=== PATIENT | female | born 1940 | race Caucasian/White ===

== ENCOUNTER 2019-08-27 11:37 | Inpatient (IN) | payer OTHER ==
[~2019-08-27] VITALS: Ht 149.9 cm; Wt 42.6 kg
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
[2019-08-27 11:39] VITALS: BP 138/49
[2019-08-27 12:15] LABS: HEMATOCRIT 33.5 % (37.0-47.0); HEMOGLOBIN 11.3 gm/dL (12.0-15.0); MCH 29.4 pg (26.0-34.0); MCHC 33.7 g/dL (28.0-37.0); MCV 87.3 fL (80.0-100.0); PLATELET COUNT 210 thou/uL (150-400); RBC 3.84 mil/uL (4.20-5.00); RDW 17.4 % (10.5-14.5); WBC 6.8 thou/uL (4.0-11.0)
[2019-08-27 12:22] LABS: CALCIUM 8.6 mg/dL (8.5-10.1); CREATININE 0.6 mg/dL (0.6-1.0); POTASSIUM 4.3 mmol/L (3.5-5.1)
[2019-08-27 12:29] LABS: ALBUMIN 2.6 g/dL (3.4-5.0); TOTAL BILIRUBIN 0.2 mg/dL (0.2-1.0); TOTAL PROTEIN 6.3 g/dL (6.4-8.2)
--- NOTE | 2019-08-27 12:48 | EKG ---
[facility] [place] [address] ELECTROCARDIOGRAM REPORT Name: ENRIKESIMON Room #: PRE [facility]..#: [id number] Admission: Attend Phys: Discharge: Date of : 38 Report #: [id number] THIS REPORT FOR: cc: Syed Hernandez MD ~ THIS REPORT FOR: //name// [facility] ED Test Date: 2019-08-27 Test Time: 12:45:38 Pat Name: SIMON CALVERT Department: Room: Gender: F [employer] Representative: RAMSEY : 1940 Requested By: Luzma Almendarez Order Number: [id number] MD: Syed Hernandez Measurements Intervals [place] Rate: 69 P: 37 NC: 139 QRS: -16 QRSD: 80 T: 47 QT: 427 QTc: 458 Interpretive Statements Sinus rhythm Probable LVH with secondary repol abnrm Anterior Q waves, possibly due to LVH No previous ECG available for comparison Electronically Signed On 08-27-2019 12:48:12 CDT by Syed Hernandez [email or web address] <ELECTRONICALLY SIGNED> By: Syed Hernandez MD 08/27/19 1248 D: [id number] Syed Hernandez MD /TAB
[2019-08-27 12:52] LABS: ABSOLUTE NEUTROPHILS 3.9 thou/uL (1.4-8.2); PLATELET ESTIMATE NORMAL
[2019-08-27] MEDS ORDERED: ZOFRAN4 MG PO (13:14)
[2019-08-27] MEDS ORDERED: MIRALAX119 GM PO (13:14)
[2019-08-27] MEDS ORDERED: VITAMIN B-650 M1 PO (13:14)
[2019-08-27] MEDS ORDERED: LIPITOR40 MG PO (13:15)
[2019-08-27] MEDS ORDERED: MELATONIN3 M1 PO (13:15)
[2019-08-27] MEDS ORDERED: LOPERAMIDE2 MG PO (13:16)
[2019-08-27 13:17] LABS: URINE BILIRUBIN NEGATIVE (Negative); URINE BLOOD NEGATIVE (Negative); URINE CLARITY CLEAR; URINE COLOR YELLOW; URINE GLUCOSE-RANDOM* NEGATIVE (Negative); URINE KETONES NEGATIVE (Negative); URINE LEUKOCYTES-REFLEX NEGATIVE (Negative); URINE NITRITE-REFLEX NEGATIVE (Negative); URINE PROTEIN (DIPSTICK) NEGATIVE (Negative); URINE UROBILINOGEN 0.2 E.U./dl (0.2-1.0)
[2019-08-27] MEDS ORDERED: BENTYL 10 MG CA10 MG PO (13:30)
[2019-08-27] MEDS ORDERED: ULTRAM 50MG TAB50 MG PO (13:32)
[2019-08-27] MEDS ORDERED: PROAIR RESPICL90 MCG INH (13:32)
[2019-08-27] MEDS ORDERED: FLORANEX TABLE1 EACH PO (13:32)
[2019-08-27] MEDS ORDERED: SENNA PLUS TAB1 EACH PO (13:32)
[2019-08-27] MEDS ORDERED: TYLENOL EXTRA500 MG PO (13:32)
[2019-08-27] MEDS ORDERED: PRINIVIL40 MG PO (13:33)
[2019-08-27] MEDS ORDERED: HYDRALAZINE 10M10 MG PO (13:33)
[2019-08-27] MEDS ORDERED: PROPRANOLOL 1010 M1 PO (13:33)
[2019-08-27] MEDS ORDERED: DEPAKOTE125 MG PO ×2 (13:33→13:34)
[2019-08-27] MEDS ORDERED: ZYPREXA7.5 MG PO (13:34)
[2019-08-27 13:52] VITALS: BP 246/94
[2019-08-27 14:29] VITALS: BP 195/127
--- NOTE | 2019-08-27 14:59 | NUR ---
PT. ARRIVED ABOUT 1400 TODAY IN A W/C FROM ER. SHE WAS TAKEN TO THE BATHROOM WHEN SHE CAME INTO HER ROOM. SHE WAS BROUGHT FROM [facility] AFTER SHE WAS COMBATIVE WITH STAFF/PEERS. SHE HAS DEMENTIA WITH BEHAVIORS. SHE WAS COOPERATIVE WITH STAFF WITH THE ADMISSION PROCESS. SHE IS ALERT AND ORIENTED TO SELF ONLY. SHE WAS UNABLE TO ANSWER QUESTIONS WHEN SHE WAS ASKED. UPON GOING ONTO THE PATIENT DINNING ROOM SHE SAT DOWN AND STARTED SCREAMING TO THE TOP OF HER LUNGS. STAFF ATTEMPTED TO REASSURE HER OF HER SAFETY. SHE WAS GIVEN AN IM OF OLANZAPINE 5 MG. SHE WAS COOPERATIVE WITH THE IM. SHE HAS A PMHX OF IBS, COPD, HYPERLIPIDEMA, HYPERTHYROIDISM, EPILEPSY, DM II (NO MEDICATIONS), CAD. SHE IS ALLERGIC TO IODINE, CODIENE, CIPRO AND FOSOMAX. HER SON ALCIRA IN [place] AND JENNIFER IN [place] ARE DPOA'S. THE SON, ALCIRA'S PHONE NUMBER IS [phone].
[2019-08-27 16:59] VITALS: BP 197/66
[2019-08-27 19:29] VITALS: BP 179/76
--- NOTE | 2019-08-28 04:29 | NUR ---
RECIEVED CARE OF THIS PATIENT AT 1900. PATIENT ALERT AND ORIENTED TO PERSON KEVIN. SAT UP IN CHAIR IN MAIN ROOM ALL NIGHT. SLEPT OFF AND ON DURING NIGHT D/T THE NOISE FROM THE OTHER PATIENTS IN THE ROOM. DENIES PAIN. UP WITH W/C OR A WALKER.
[2019-08-28 06:38] VITALS: BP 153/79
[2019-08-28 09:48] VITALS: BP 153/79
[2019-08-28 09:55] VITALS: BP 153/79
--- NOTE | 2019-08-28 09:55 | NUR ---
0955 RESUMMED CARE FROM OVERNIGHT SHIFT THIS AM, PATIENT SITTING IN RECLINER WITH ONE TO ONE STAFF. PATIENT ATE BREAKFAST AND TOOK MEDICATION WITHOUT INCIDENCE CRUSHED. PATIENT HAD A VISIT FROM OUTSIDE MEDICAL DOCTOR, DOCTOR ORDERED A CT SCAN AND CHEST XRAY FOR PATIENT. ALSO ADDED LISINOPRIL FOR BP, PATIENTS ABDOMEN SOFT ROUND BOWEL SOUNDS PRESENT LUNGS CLEAR. PATIENT LEANS TO RT SIDE. HER MEDICAL DOCTOR THINKS COULD BE RELATED TO AFALL PATIENT HAD PREVIOUSLY. PATIENT QUIET COOPERATIVE WILL CONTINUE TO MONITOR PATIET FOR SAFETY AND BEHAVIORS.
--- NOTE | 2019-08-28 11:26 | NUR ---
Sw spoke with pt' dght and provided an update. Sw completed the intake assessment and tp. [facility] is eager for pt to d/c and would like it to be or Sat next week. Sw attempted to provide education and support.
[2019-08-28 19:41] VITALS: BP 121/34
--- NOTE | 2019-08-29 04:35 | NUR ---
Assumed care of pt @ 1900. Pt calm et cooperative most of shift with several small outbursts of aggression et verbalization. Took medication crushed in yogurt without difficulty. Unable to assess ambulation as pt spent most of shift in recliner. VSWNL. Health assessment with no abnormalities noted at present time. Unable to assess SI/HI due to pt's cognitive deficits but does not demonstrate any signs or symptoms of acute emotional distress at present time. Currently resting in recliner in dayroom with eyes open. Pt has not slept very much at all this shift. Will continue to monitor per protocol.
[2019-08-29 07:35] VITALS: BP 114/64
[2019-08-29 10:15] VITALS: BP 136/84
--- NOTE | 2019-08-29 10:33 | NUR ---
ASSUMED CARE AT 0700 THIS MORNING. PT. IN RECLINING CHAIR, AWAKE. PT. UNABLE TO CARRY ON CONVERSATION OR ANSWER QUESTIONS DUE TO COGNITIVE DEFICITS. SHE TOOK HER MEDICATIONS WITHOUT DIFFICULTY. SHE HAS HER EYES CLOSED, RESTING THIS MORNING.
[2019-08-29 19:35] VITALS: BP 93/46
--- NOTE | 2019-08-30 04:56 | NUR ---
Assumed care of pt @ 1900. Pt calm et cooperative with pleasant demeanor this shift. Took medications crushed in pudding without difficulty. Unable to assess gait as pt spent most of shift in recliner in dayroom. VSWNL. Health assessment with no abnormalities noted at present time. Unable to assess SI/HI due to pt's cognitive deficit but does not demonstrate any signs or symptoms of acute emotional distress at present time. Currently resting in recliner in dayroom with eyes closed. Will continue to monitor per protocol.
[2019-08-30 09:05] VITALS: BP 142/51
--- NOTE | 2019-08-30 09:48 | NUR ---
ASSUMED CARE AT 0700 THIS MORNING. PT. WAS SITTING IN A RECLINING CHAIR, QUIET. SHE TOOK HER MORNING MEDICATIONS CRUSHED AND IN PUDDING WITHOUT DIFFICULTIES. SHE REMAINS ON 1:1 FOR SAFETY. SHE CONSTANTLY TRIES TO GET OUT OF THE CHAIR. SHE IS UNSTEADY ON HER FEET AND CANNOT AMULATE WITHOUT ASSISTANCE OF ONE. SHE IS TALKING IN FULL SENTENCES BUT DOES NOT PERTAIN TO THE CONVERSATION GOING ON. SHE REMAINS TANGENTIAL IN HER CONVERSATIONS. SHE APPEARS MORE AWAKE AND ALERT THOUGH. SHE SMILES AT STAFF WHEN THEY ARE TALKING TO HER.
[2019-08-30 12:27] VITALS: BP 142/51
[2019-08-30 19:53] VITALS: BP 121/52
[2019-08-30 20:30] VITALS: BP 121/52
--- NOTE | 2019-08-31 03:57 | NUR ---
PATIENT WAS SITTING UP IN RECLINER THIS EVENING WITH LAP CHANI ON AND A 1:1 SITTER. SHE HAS BEEN APPROPRIATE AND ANSWERING QUESTIONS APPROPRIATELY FOR THE MOST PART. SHE HAS BEEN CALM AND COOPERATIVE. SHE PATIENT TOOK ALONG TIME TO FALL ASLEEP TONIGHT D/T RESTLESS AND KEPT TALKING TO OTHERS IN HER ROOM. HER CONVERSATION DOESN'T MAKE MUCH SENSE MOST OF TIME BUT SPEECH IS CLEAR. PT IS SLEEPING AT THIS TIME. BED IN LOW POSITION AND BED ALARM IS ON. PATIENT TOOK HER MEDS CRUSHED IN PUDDING WITHOUT INCIDENT. SHE DENIES PAIN. NO SI/HI/AVH NOTED. CONTINUING TO MONITOR.
[2019-08-31 07:52] VITALS: BP 149/51
--- NOTE | 2019-08-31 09:05 | NUR ---
YARITZA faxed updates to Carlin Augustin this AM
--- NOTE | 2019-08-31 11:55 | NUR ---
Johana spoke with both Angelica in admisisons at and then ht of pt who thought pt was discharging on Sat or . JOHANA corrected her and offered more education about the d/c expectations. Pt was taken off the 1:1 this am, and is taking meds as prescribed. Hoping for a d/c at the end of this week, possibly saturday.
--- NOTE | 2019-08-31 13:53 | NUR ---
HAS HAD SOME EPISODES OF RESTLESSNESS THIS AM BUT HAS BEEN DIRECTABLE WITH SUPPORT OF NURSING STAFF. LABILE AT TIMES TEAFUL AT TIMES YELLING OUT LOUDLY. ORIENTED TO NAME ONLY. COMPLIENT WITH TAKING MEDICATIONS CRUSHED WITH PUDDING
--- NOTE | 2019-08-31 14:59 | NUR ---
YARITZA spoke with pt's dght and provided an update regarding pt's condition and set up a family meeting for 2pm on 08/31. Reported this to Dr Deras
--- NOTE | 2019-08-31 16:20 | NUR ---
Pt was unable to participate in the Sw group
[2019-08-31 20:36] VITALS: BP 149/51
[2019-08-31 21:00] VITALS: BP 149/51
--- NOTE | 2019-09-01 02:30 | NUR ---
PATIENT WAS UP IN RECLINER IN DINING ROOM TONIGHT UNTIL SHE WENT TO BED AT 2130. PATIENT HAS BEEN CALM AND RELAXED. SHE DID TALK ALOT TONIGHT ABOUT WHAT SEEMS TO BE MEMORIES OF A TRIP SHE HAD. PATIENT WORDS SCRAMBLED. PATIENT DID SMILE ALOT TONIGHT. SHE HAD HS SNACK. PATIENT ABLE TO LET US KNOW THAT SHE NEEDED TO USE THE RESTROOM AND WAS ASSISTED TO BSC AND THEN TO BED. PATIENT STATES SHE WAS TIRED. SHE DENIES PAIN. PATIENT HAS BEEN SLEEPING SO FAR TONIGHT. INCONTINENCE CARES NEEDED. PATIENT IS WEAK IN LEGS BUT DID TAKE A FEW STEPS WITH HER WALKER. BED IN LOW POSITION AND BED ALARM IS ON. ROUTINE ROUNDING TO CHECK STATUS AND SAFETY OF PATIENT.
[2019-09-01 06:18] LABS: CALCIUM 8.6 mg/dL (8.5-10.1); CREATININE 0.7 mg/dL (0.6-1.0); POTASSIUM 4.5 mmol/L (3.5-5.1)
[2019-09-01 08:41] VITALS: BP 154/41
[2019-09-01 14:50] VITALS: BP 183/66
--- NOTE | 2019-09-01 14:50 | NUR ---
Johana and Dr deras spoke with [facility] Carlie. Dr Deras provided an update that include the idea of hospice. He also suggested that Carlie come and visit tomorrow. Carlie is feeling upset and surprised by this as she lost her father on August 22 2019. Johana added her as the designated visitor and she swill call in the AM to confirm the 4pm-5pm visit on 09/01. JOHANA then called [facility] and left a VM that this pt might be ready to d/c on 09/02. JOHANA then faxed updates.
[2019-09-01 14:52] VITALS: BP 152/54
--- NOTE | 2019-09-01 15:30 | NUR ---
Pt's dght requested that the visit be held outside and DR Deras agreed that she could go for " fresh air therapy". [facility] is undecided about the visit.
[2019-09-01 19:21] VITALS: BP 170/50
--- NOTE | 2019-09-01 19:32 | NUR ---
Alert and interactive today. Alot of confused speech but does make occassional coherent statements. Alert to name and day. Denies SI/HI, no speech/behavior suggestive of SI/HI. Follows simple commands, compliant with meds crushed in applesauce. Independently eating meals with minimal assistance. Breath sounds clear t/o. Reg HR auscultated. Color pink with brisk capillary refill and palpable peripheral pulses. Incontinent of yellow urine. Active bowel sounds over soft, flat abdomen. Spent day in recliner without s/o distress and without reported negative behaviors.
--- NOTE | 2019-09-02 05:11 | NUR ---
Assumed care of pt @ 1900. pt calm et cooperative with pleasant demeanor at beginning of shift. Took medications crushed in pudding without difficulty. Ambulates with assistance of aramis-chair this shift. Socialized in dayroom with peers though communication difficult due to pt's occasional word salad. VSWNL. Health assessment with no abnormalities noted at present time. Unable to assess SI/HI due to pt's cognitive deficit but does not demonstrate any signs or symptoms of acute emotional distress at present time. PRN Olanzapine 5mg IM given for agitation this shift. Currently resting in aramis-chair in dayroom with eyes open. Will continue to monitor per protocol.
[2019-09-02 10:15] VITALS: BP 143/58
--- NOTE | 2019-09-02 11:13 | NUR ---
Pt is was in the day room this am. Pt ate most of her bkf. and diet was changed to mechanical soft. Pt also had Ute oob with walker this am. lungs clearx 2, pedal pulse faint, bowel sounds active. No complaint voiced at this time.Staff continues to observed and encouraged to drink fluids.
--- NOTE | 2019-09-02 13:03 | NUR ---
SW spoke with Carlin Monica and disucssed that d/c will not be tomorrow- so it will likely be Saturday. [facility] stated that they do not like Saturday admissions on a complex pt. Sw will relay this to pt's dght , the admisisons coordiantor reported sh was talking with dght, and Dr Hdz too about the concerns dght has.
--- NOTE | 2019-09-02 15:10 | NUR ---
Johana spoke with Carlie and reported to her that this pt received an IM last night and would not be ready for d/c until Saturday. Carlie reported she is disappointed but understands.
[2019-09-02 20:02] VITALS: BP 128/63
[2019-09-02 20:30] VITALS: BP 128/63
--- NOTE | 2019-09-02 23:13 | NUR ---
PATIENT WAS SITTING UP IN RECLINER AT A TABLE IN DINING ROOM WITH LAPBUDDY ON LOOSLY AND FASTENED IN FRONT. PATIENT WAS CALM AND RELAXED AND SAT FIDGETING WITH HER CLOTHES AND WATCHING THOSE AROUND HER. PATIENT DID TAKE HS MEDS CRUSHED IN APPLESAUSE AND DRANK HONEY THICKENED WATER. SHE HAD HS SNACK OF ENSURE PUDDING. PATIENT DENIES PAIN. ASSESSMENT WNL. NO SI/HI/AVH. PATIENT ASSISTED TO BED AND INCONTINENCE CARES DONE. PATIENT SLEEPING AT THIS TIME. ROUTINE ROUNDS TO ASSESS SAFETY AND STATUS OF PATIENT. PATIENT HAS BEEN PLEASANT AND NO NEGATIVE BEHAVIORS TONIGHT. PATIENT DOES TALK BUT WORDS ARE SCRAMBLED AND UNORGANIZED THOUGHT PROCESS.
[2019-09-03 10:04] VITALS: BP 148/68
--- NOTE | 2019-09-03 11:28 | NUR ---
Pt was in day room this am when arrived on duty. lul looked sleepy, but awoke when I asked her questions. Assessment ,lungs clearx2, pedal pulse faint , no edema noted , bowel sounds faint. appitite good. Pt did not have a goal for today. Fluids encouraged. pt. was toileted.
[2019-09-03 13:12] VITALS: BP 148/66
--- NOTE | 2019-09-03 14:43 | NUR ---
Johana spoke with Carlie and provided an update. She understands that pt will likely be here through the weekend and was pleased tohear her mom was doing better. Johana will coordinate with Carlin cardenas a Saturday d/c is appropriate
[2019-09-03 19:28] VITALS: BP 134/62
--- NOTE | 2019-09-04 | NUR ---
Care assumed of patient at 1915: Patient seated in recliner, in dayroom at start of shift. Patient alert and oriented to person only. Patient pleasantly confused and forgetful. Patient talking excessively, expansive. Patient denies anxiety, depression, SI, HI, AH, VH. Patient denies pain. Patient having disorganized but joyful speech. Patient discussing family, vacation, going to [place]. Smiling and happy. Patient took HS medication crushed with a cup of yogurt. Patient somewhat delusional with her speech but only able to catch a few words here and there. Patient answering questions appropriately and has better ability to focus. Patient incontinent of bladder. Required mod assist x1 for maria isabel care and linen change. Very cooperative with toileting cares. Patient provided option of laying in bed or laying in recliner. Patient stated she wanted to sleep in the recliner. Patient able to fall asleep at a reasonable hour and is resting quietly in recliner at this time.
[2019-09-04 07:41] VITALS: BP 126/48
--- NOTE | 2019-09-04 10:18 | NUR ---
Nutrition: Assessed for early weekend LOS. Here for dementia w/ behaviors/ aggression. Psych notes state pt w/ very advanced dementia. Noted to have delusional speech and words are scrambled. Mainly A&O to person only, confused and forgetful. EMR reviewed. Pt on mechanical chopped diet with honey thick liquids and no mixed consistencies. Appetite noted to be very good. Pt often eats 80-100% of meals. Meal Average= 78% per the last 13 recorded meals across 5 days (08/29 - 09/02). Recent BM 09/02. Does require some feeding assistance which staff provides as needed. Receiving Ensure pudding at her meals. Pt is of very short stature < 5 feet tall and BMI still appropriate at 18.8 kg/m2. Likely d/c Saturday potentially per notes. Maintain low nutrition risk.
--- NOTE | 2019-09-04 10:56 | NUR ---
Johana spoke with lamine Sexton and reported that pt was still ready to d/c saturday as planned. Pt is now off a lap tadeo, taking meds orally, acceptign ADL care and will have her COVID test done over the weekend. JOHANA then called [facility] to confirm a belt picker time and left a VM. Johana then faxed updates.
[2019-09-04 15:53] VITALS: BP 126/48
--- NOTE | 2019-09-04 16:03 | NUR ---
ASSUMED CARE AT 0700 THIS MORNING. PT. SITTING IN CHAIR, QUIET. SHE IS RESTING. SHE WAS GIVEN HER MEDICATIONS CRUSHED AND IN YOGURT. SHE TOOK THESE WITHOUT HESITATION. SHE HAS BEEN CALM AND COOPERATIVE ALL DAY. SHE DOES REST FREQUENTLY. SHE HAS ATTENED SOME GROUPS BUT NOT SURE IF SHE WAS ABLE TO PARTICIPATE SINCE SHE SLEEPS OFTEN.
--- NOTE | 2019-09-04 16:39 | NUR ---
YARITZA spoke with Angelica at and confirmed that they will picking tech this pt at 11 am on saturday. SW confirmed the COID test for Sat, and the d/c plans with nursing.
[2019-09-04 19:30] VITALS: BP 124/50
--- NOTE | 2019-09-04 23:06 | NUR ---
Care assumed of patient at 1915: Patient seated in recliner in dayroom at start of shift. Patient calm, pleasant and cooperative. Patient smiling and interactive with staff. Patient pleasant when other peers interact with her. Patient having clear, disorganized thoughts. No delusional or paranoia behaviors observed. Denies SI/HI/AH/VH. Denies pain and discomfort. Alert and oriented to person only. Confused and forgetful. No restlessness or impulsivity observed. Patient not visualized trying to get out of her chair independently. Patient ate 100% HS snack of yogurt, fed by nurse. Patient took HS medication crushed without difficulty. Patient assisted to bed with staff assist x2. Incontinent of bladder. Cooperative with maria isabel care and linen change. Patient has been able to rest quietly since retiring to bed.
[2019-09-05 09:12] VITALS: BP 126/41
--- NOTE | 2019-09-05 13:27 | NUR ---
Alert and talkative, but speech mostly incoherent. Alert and orientated to name only. Happy affect. No speech/behavior suggestive of SI/HI. Sitting in recliner without lap tadeo. Occassionally tries to get up but is cooperative with requests/reminders to sit down. Eats approximately 50% of meal independently and eats rest with assistance. Ate 100% of lunch. Compliant with meds crushed in apple sauce. Breath sounds clear t/o. Reg HR auscultated. Color pink with brisk capillary refill and palpable peripheral pulses. No edema noted. Incontinent of yellow urine per brief. Active bowel sounds over soft, rounded abdomen. 1300 Daughter called for update, provided. Spoke with pt at length. Pt. appeared to be happy to speak with her and was able to ask how she was doing and several other pertinent questions but also had alot of confused, rambling speech. Daughter concerned and states she will talk with SW. Also wants to know why COVID test is ordered for 09/05 instead of 09/04. Pt currently sleeping in recliner without s/o distress.
[2019-09-05 18:58] VITALS: BP 135/49
--- NOTE | 2019-09-06 05:26 | NUR ---
09-06-19 CARE TRANSFERRED 1915 PT SITTING IN RECLINER IN DAY ROOM. 2010 PT AAOX1, CONFUSED AND SPEACH GARBLED. PT CALM AND COOPERATIVE, VSS RR EVEN AND NONLABORED ON RA. LATER PT WAS MOVED TO BED. THROUGHOUT NURSING ROUNDS PT HAD ZERO S/S OF ACUTE EMOTIONAL OR MEDICAL DISTRESS. WILL CONTINUE TO MONITOR PER [facility].
[2019-09-06 07:50] VITALS: BP 164/62
--- NOTE | 2019-09-06 09:34 | NUR ---
ASSUMED CARE AT 0700 THIS MORNING. PT. SITTING A REGULAR CHAIR IN THE DINING ROOM. SHE IS SMILING. SHE IS TAKING BUT SPEECH IS NOT INTELLIGABLE. SHE ATE BREAKFAST BY HERSELF. SHE STATED SHE WAS HUNGRY. SHE TOOK HER MEDICATIONS CRUSHED AND APPLESAUCE WITHOUT PROBLEMS NOTED. SHE REQUIRES REMINDERS TO REMAIN SEATED AND NOT WALK AROUND BY HERSELF.
[2019-09-06 11:31] VITALS: BP 164/62
[2019-09-06 21:00] VITALS: BP 126/82
[2019-09-06 21:05] VITALS: BP 155/136
[2019-09-06 21:30] VITALS: BP 126/82
--- NOTE | 2019-09-07 02:57 | NUR ---
PATIENT WAS UP IN RECLINER IN DINING ROOM TONIGHT AND HAD HS SNACK BEFORE FALLING ASLEEP IN CHAIR. SHE HAS BEEN CALM AND COOPERATIVE. NO NEGATIVE BEHAVIORS. PATIENT TOOK HS MEDS CRUSHED IN [place]. SHE CONTINUES TO BE ON HONEY THICKENED LIQUIDS. PATIENT ASSISTED TO BED AND INCONTINENCE CARES DONE AROUND 2129. ROUTINE ROUNDS TO ASSESS STATUS AND SAFETY OF PATIENT. BED IN LOW POSITION AND BED ALARM IS ON. WILL CONTINUE TO MONITOR.
[2019-09-07 08:52] VITALS: BP 100/40
--- NOTE | 2019-09-07 09:58 | NUR ---
ATTEMPTS X 2 TO CALL REPORT TO [facility]-MESSAGE LEFT FOR NURSING STAFF TO CALL FOR NURSING REPORT. SON-DPOA ALCIRA CALVERT CONTACTED VIA PHONE AND DC INSTRUCTIONS,MEDS,FOLLOW UP ETC REVIEWED-HE DENIES QUESTIONS/CONCERNS AND STATES UNDERSTANDING. PERSONAL BELONGINGS INVENTORIED AND CHECKED AGAINST ADMIT LIST-BELONGINS SENT WITH PT AT DC. PACKET INCLUDING RX,LABS,DISCHARGE SUMMARY SENT-
--- NOTE | 2019-09-07 10:30 | NUR ---
SW made packet and left it on the chart.
[2019-09-07] MEDS ORDERED: PROPRANOLOL 1010 MG PO (10:42)
[2019-09-07] MEDS ORDERED: HYDRALAZINE 10M10 MG PO (10:42)
[2019-09-07] MEDS ORDERED: DEPAKOTE SPRIN125 MG PO (10:43)
[2019-09-07] MEDS ORDERED: ALTACE5 MG PO (10:43)
[2019-09-07] MEDS ORDERED: OLANZAPINE2.5 MG PO (10:44)
[2019-09-07] MEDS ORDERED: ZYPREXA 5 MG TAB5 M1 PO ×2 (10:44)
--- NOTE | 2019-09-07 11:02 | NUR ---
Johana spoke with Dilcia QUILES at and she wanted pt to be discharged skilled, but there are no orders for that. JOHANA then asked Dr Deras and he stated that there would not be orders for that. JOHANA reported this to Dilcia that this pt will be going back
--- NOTE | 2019-09-07 11:49 | NUR ---
Sw also faxed orders and d/c summary
--- NOTE | 2019-09-07 12:07 | NUR ---
PT DISCHARGED VIA WC ACCOMPNIED BY NURSING STAFF TO [facility] AT APPPROX 1145. ALERT-DENIES COMPLAINTS AT TIME OF DC
== END 2019-09-07 11:45 | DRG 57 ==
LOC: ER 11:37 → SBH 13:29 → EROBS 13:29 → SBH 13:53
PROVIDERS: Family Medicine; Physician Assistant; ADMIT Psychiatry & Neurology Psychiatry; ATTEND Psychiatry & Neurology Psychiatry
DX: G30.9 Alzheimer's disease, unspecified (principal); F01.51 Vascular dementia, unspecified severity, with behavioral disturbance; F02.81 Dementia in other diseases classified elsewhere, unspecified severity, with behavioral disturbance; F29 Unspecified psychosis not due to a substance or known physiological condition; E78.5 Hyperlipidemia, unspecified; J44.9 Chronic obstructive pulmonary disease, unspecified; E11.9 Type 2 diabetes mellitus without complications; Z66 Do not resuscitate; I10 Essential (primary) hypertension; I25.10 Atherosclerotic heart disease of native coronary artery without angina pectoris; I67.9 Cerebrovascular disease, unspecified; Z79.899 Other long term (current) drug therapy; Z88.1 Allergy status to other antibiotic agents; Z91.041 Radiographic dye allergy status; Z88.5 Allergy status to narcotic agent; Z88.8 Allergy status to other drugs, medicaments and biological substances; Z91.048 Other nonmedicinal substance allergy status; Z03.818 Encounter for observation for suspected exposure to other biological agents ruled out
CPT/HCPCS: 10880